=== PATIENT | male | born 1980 | race Caucasian/White ===

== ENCOUNTER 2016-05-30 10:58 | Emergency (ER) | payer OTHER ==
[2016-05-30 11:57] VITALS: BP 113/60
--- NOTE | 2016-05-30 12:50 | UC ---
Skin Complaint HPI - HPI Summary HPI Summary: Pt presents with c/o left side tenderness and erythema below left ear lobe. Pt has history of cellulitis - History of Current Complaint Chief Complaint: UCSkin Time Seen by Provider: 05/30/16 12:42 Stated Complaint: SKIN COMPLAINT Hx Obtained From: Patient Onset/Duration: Sudden Onset, Lasting Days Skin Exposure Onset/Duration: Days Ago Timing: Constant Onset Severity: Mild Current Severity: Mild Location: Discrete - right side of neck, below ear lobe Character: Painful - tenderness Aggravating: Touch Alleviating: Other - not touching Associated Signs & Symptoms: Positive: Tenderness - Allergy/Home Medications Allergies/Adverse Reactions: Allergies Allergy/AdvReac Type Severity Reaction Status Date / Time No Known Allergies Allergy Verified 05/30/16 11:49 Review of Systems Constitutional: Negative Skin: Other - erythema, tenderness Eyes: Negative ENT: Negative Respiratory: Negative Cardiovascular: Negative Gastrointestinal: Negative Genitourinary: Negative Motor: Negative Neurovascular: Negative Musculoskeletal: Negative Neurological: Negative Psychological: Negative All Other Systems Reviewed And Are Negative: Yes PMH/Surg Hx/FS Hx/Imm Hx Previously Healthy: Yes - Surgical History Surgical History: Yes Surgery Procedure, Year, and Place: Cyst removal- Posterior neck - Family History Known Family History: Positive: Other - positive FMH for abrasion - Social History Alcohol Use: None Substance Use Type: Marijuana Substance Use Comment - Amount & Last Used: Daily Smoking Status (MU): Heavy Every Day Tobacco Smoker Amount Used/How Often: 1ppd Household Exposure Type: Cigarettes Physical Exam Triage Information Reviewed: Yes Appearance: Well-Appearing Vital Signs: Initial Vital Signs Temp 98.1 F 05/30/16 11:52 Pulse 49 05/30/16 11:52 Resp 14 05/30/16 11:52 BP 113/60 05/30/16 11:52 Pulse Ox 100 05/30/16 11:52 Eye Exam: Normal ENT Exam: Other - erythema, perrin stubble Neck exam: Normal Respiratory Exam: Normal Cardiovascular Exam: Normal Musculoskeletal Exam: Normal Neurological Exam: Normal Psychological Exam: Normal Skin Exam: Other - eryhtmeatous area ~ dime size just below right earlobe., with perrin stubble sticking upo through Course/Dx - Differential Diagnoses - Skin Complaint Differential Diagnoses: Cellulitis, MRSA, Tinea - Diagnoses Provider Diagnoses: Cellulitis Discharge - Discharge Plan Condition: Stable Disposition: HOME Prescriptions: Cephalexin CAP* [Keflex 500 CAP*] 500 mg PO Q12HR #10 cap Patient Education Materials: Cellulitis (ED) Referrals: No Primary Care Phys,NOPCP [Primary Care Provider] - [facility] [place] [facility] REFERRAL [Outside] Additional Instructions: Please establish care with a PCP. We have provided you a referral number to our [facility] [place] PCP referral service.
== END 2016-05-30 13:10 | disposition home or self-care (01) ==
LOC: EDSEX → UCCORT 10:58
DX: H60.12 Cellulitis of left external ear (principal); F17.210 Nicotine dependence, cigarettes, uncomplicated
CPT/HCPCS: 99202; G0463

== ENCOUNTER 2016-12-28 10:36 | Emergency (ER) | payer OTHER ==
[2016-12-28 11:00] VITALS: BP 120/69
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
== END 2016-12-28 11:50 | disposition home or self-care (01) ==
LOC: UCCORT 10:36
DX: R10.32 Left lower quadrant pain (principal); F17.210 Nicotine dependence, cigarettes, uncomplicated
CPT/HCPCS: 81003; 99211; G0463

== ENCOUNTER 2017-01-30 21:12 | Emergency (ER) | payer OTHER ==
[2017-01-30] MEDS ORDERED: Acetaminop/Codeine 30 MG TAB* 1 TAB (300 MG/30 MG) PO ONE (21:16)
[2017-01-30] MEDS ORDERED: methylPREDNISolone 125 MG* 2 ML VIAL IM ONE (21:16)
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
[2017-01-30] MEDS ORDERED: Silver Sulfadiazine 1%* 20 GM TOPICAL ONE (21:17)
[2017-01-30 21:20] VITALS: BP 118/86
[2017-01-30] MEDS ORDERED: Tetan/Diph/Pertus SYR(Tdap)* 0.5 ML SYR(BOOSTRIX) use SYR IM ONE (21:57)
[2017-01-30] MEDS ORDERED: Ibuprofen TAB* 400 MG PO ONE (22:00)
[2017-01-30] MEDS ORDERED: Lidocaine 2% JELLY* 30 GM TUBE TOPICAL ONE ×2 (22:02→22:07)
[2017-01-30] MEDS ORDERED: Lidocaine 2% JELLY* 6 ML JELLY TOPICAL ONE ×2 (22:03→22:08)
== END 2017-01-30 22:27 | disposition home or self-care (01) ==
LOC: UCCORT 21:12
DX: T23.202A Burn of second degree of left hand, unspecified site, initial encounter (principal); X15.3XXA Contact with hot saucepan or skillet, initial encounter; Y93.9 Activity, unspecified; Y92.9 Unspecified place or not applicable; Z23 Encounter for immunization; F17.210 Nicotine dependence, cigarettes, uncomplicated
CPT/HCPCS: 90471; 90715; 96372; 99213; A9270-GY; G0463; J2930

== ENCOUNTER 2018-12-24 12:19 | Emergency (ER) | payer OTHER ==
[2018-12-24 12:54] VITALS: BP 123/79
--- NOTE | 2018-12-24 13:20 | UC ---
Throat Pain/Nasal Josh HPI - HPI Summary HPI Summary: 38-year-old male comes in with chief complaint of upper respiratory tract infection symptoms for about 3 days. He did have some nausea then he went to sore throat. Pain is worse with swallowing. Pain is decreased with throat lozenges. Has had some chills no measured fevers. Has had some rhinorrhea. No complaint of any shortness of breath or difficulty breathing. - History of Current Complaint Chief Complaint: UCRespiratory Stated Complaint: SORE THROAT Time Seen by Provider: 12/24/18 12:52 Pain Intensity: 8 - Allergies/Home Medications Allergies/Adverse Reactions: Allergies Allergy/AdvReac Type Severity Reaction Status Date / Time No Known Allergies Allergy Verified 12/24/18 12:49 Home Medications: Home Medications Pheniramine/P-Eph/Acetaminophn [Theraflu Flu & Sore Throa] 1 corina PO ONCE PRN [History Confirmed 12/24/18] PMH/Surg Hx/FS Hx/Imm Hx Previously Healthy: Yes - Surgical History Surgical History: Yes Surgery Procedure, Year, and Place: Cyst removal- Posterior neck - Family History Known Family History: Positive: None, Other - Social History Alcohol Use: None Substance Use Type: None Substance Use Comment - Amount & Last Used: Daily Smoking Status (MU): Former Smoker Type: Cigarettes Amount Used/How Often: 1ppd When Did the Patient Quit Smoking/Using Tobacco: 12/16/17 Household Exposure Type: Cigarettes Review of Systems All Other Systems Reviewed And Are Negative: Yes Constitutional: Positive: Chills Skin: Positive: Negative Eyes: Positive: Negative ENT: Positive: Sore Throat, Nasal Discharge Respiratory: Positive: Negative Cardiovascular: Positive: Negative Gastrointestinal: Positive: Negative Motor: Positive: Negative Neurovascular: Positive: Negative Musculoskeletal: Positive: Negative Neurological: Positive: Negative Psychological: Positive: Negative Is Patient Immunocompromised?: No Physical Exam Triage Information Reviewed: Yes Appearance: No Pain Distress, Well-Nourished, Ill-Appearing - mild Vital Signs: Initial Vital Signs Temp 98.6 F 12/24/18 12:50 Pulse 71 12/24/18 12:50 Resp 16 12/24/18 12:50 BP 123/79 12/24/18 12:50 Pulse Ox 98 12/24/18 12:50 Vital Signs Reviewed: Yes Eye Exam: Normal Eyes: Positive: Conjunctiva Clear ENT: Positive: Pharyngeal erythema, Nasal congestion, Nasal drainage, TMs normal , Uvula midline. Negative: Muffled voice, Hoarse voice Neck: Positive: Supple Respiratory: Positive: Lungs clear, Normal breath sounds, No respiratory distress Cardiovascular: Positive: RRR Musculoskeletal: Positive: Strength Intact, ROM Intact Neurological: Positive: Alert, Muscle Tone Normal Psychological: Positive: Normal Response To Family, Age Appropriate Behavior Skin Exam: Normal Throat Pain/Nasal Course/Dx - Course Course Of Treatment: DISCUSSED VIRAL VERSES BACTERIAL INFECTIONS AND THE ROLE OF ANTIBIOTICS. THE PATIENT PREFERS TO BE ON ANTIBIOTICS AT THIS TIME. - Differential Dx/Diagnosis Provider Diagnosis: Upper respiratory infection, Pharyngitis Discharge ED - Sign-Out/Discharge Documenting (check all that apply): Patient Departure All imaging exams completed and their final reports reviewed: No Studies - Discharge Plan Condition: Stable Disposition: HOME Prescriptions: Amoxicillin PO (*) [Amoxicillin 875 MG (*)] 875 mg PO BID #20 tab Ibuprofen TAB* [Motrin TAB* 600 MG] 600 mg PO Q6H PRN #20 tab PRN Reason: Pain-Moderate/Temp >/= 100.4 Patient Education Materials: Pharyngitis (ED), Upper Respiratory Infection (ED) Referrals: Noah Shipley MD [Primary Care Provider] - Additional Instructions: FOLLOW UP WITH YOUR DOCTOR IF NOT COMPLETELY IMPROVED. GET REEVALUATED SOONER IF NOT IMPROVING OR YOUR CONDITION WORSENS OR ANY QUESTIONS OR CONCERNS. - Billing Disposition and Condition Condition: STABLE Disposition: Home
== END 2018-12-24 13:37 | disposition home or self-care (01) ==
LOC: UCCORT 12:19
DX: J02.9 Acute pharyngitis, unspecified (principal); R11.0 Nausea; Z87.891 Personal history of nicotine dependence
CPT/HCPCS: 87651; 99212; G0463

== ENCOUNTER 2019-03-29 10:01 | Emergency (ER) | payer OTHER ==
[2019-03-29 11:08] VITALS: BP 115/76
[2019-03-29 11:39] LABS: Influenza A Molecular NEGATIVE (Negative); Influenza B Molecular NEGATIVE (Negative)
--- NOTE | 2019-03-29 11:41 | UC ---
FLU HPI - HPI Summary HPI Summary: Pt presents with sudden onset of fever, chills, cough, upper respiratory congestion X 3 days. - History of Current Complaint Chief Complaint: UCGeneralIllness Stated Complaint: CONGESTION COUGH Time Seen by Provider: 03/29/19 10:53 Hx Obtained From: Patient Onset/Duration: Sudden Onset, Lasting Days, Still Present Severity Currently: Moderate Severity Initially: Moderate Pain Intensity: 0 Associated Signs & Symptoms: Positive: Fever, Myalgia, Sore Throat, Nasal Congestion Related Hx: Possible Flu/Infectious Exposure - Risk Factors Influenza Risk Factors: Negative - Allergy/Home Medications Allergies/Adverse Reactions: Allergies Allergy/AdvReac Type Severity Reaction Status Date / Time No Known Allergies Allergy Verified 03/29/19 11:08 PMH/Surg Hx/FS Hx/Imm Hx Previously Healthy: Yes - Surgical History Surgical History: Yes Surgery Procedure, Year, and Place: Cyst removal- Posterior neck - Family History Known Family History: Positive: None, Other - Social History Occupation: Employed Full-time Lives: With Family Alcohol Use: None Substance Use Type: None Substance Use Comment - Amount & Last Used: Daily Smoking Status (MU): Former Smoker Type: Cigarettes Amount Used/How Often: 1ppd Have You Smoked in the Last Year: Yes When Did the Patient Quit Smoking/Using Tobacco: 12/16/17 Household Exposure Type: Cigarettes - Immunization History Vaccination Up to Date: No Review of Systems All Other Systems Reviewed And Are Negative: Yes Constitutional: Positive: Fever, Chills, Fatigue Skin: Positive: Negative Eyes: Positive: Negative ENT: Positive: Sinus Congestion Respiratory: Positive: Cough Cardiovascular: Positive: Negative Gastrointestinal: Positive: Negative Genitourinary: Positive: Negative Motor: Positive: Negative Neurovascular: Positive: Negative Musculoskeletal: Positive: Negative Neurological: Positive: Negative Psychological: Positive: Negative Is Patient Immunocompromised?: No Physical Exam Triage Information Reviewed: Yes Appearance: Ill-Appearing Vital Signs: Initial Vital Signs Temp 99.5 F 03/29/19 11:03 Pulse 72 03/29/19 11:03 Resp 18 03/29/19 11:03 BP 115/76 03/29/19 11:03 Pulse Ox 99 03/29/19 11:03 Vital Signs Reviewed: Yes Eye Exam: Normal ENT: Positive: Nasal congestion Dental Exam: Normal Neck exam: Normal Respiratory: Positive: Other: - upper respiratory congestion Cardiovascular Exam: Normal Musculoskeletal Exam: Normal Neurological Exam: Normal Psychological Exam: Normal Psychological: Positive: Normal Response To Family, Age Appropriate Behavior Skin Exam: Normal Flu Course/Dx - Differential Dx/Diagnosis Differential Diagnosis/HQI/PQRI: Bronchitis, Influenza, Upper Respiratory Infection Provider Diagnosis: Bronchitis Discharge ED - Sign-Out/Discharge Documenting (check all that apply): Patient Departure All imaging exams completed and their final reports reviewed: No Studies - Discharge Plan Condition: Stable Disposition: HOME Prescriptions: Amoxicillin PO (*) [Amoxicillin 500 MG CAP*] 500 mg PO Q12H #20 cap Benzonatate CAP* [Tessalon 100 MG CAP*] 100 mg PO Q8H PRN #30 cap PRN Reason: Cough predniSONE 10 mg TAB [Deltasone 10 MG TAB*] 30 mg PO DAILY #12 tab Patient Education Materials: Acute Bronchitis (ED) Forms: *Work Release Referrals: Noah Shipley MD [Primary Care Provider] - If Needed - Billing Disposition and Condition Condition: STABLE Disposition: Home
== END 2019-03-29 12:00 | disposition home or self-care (01) ==
LOC: UCCORT 10:01
DX: J40 Bronchitis, not specified as acute or chronic (principal); Z87.891 Personal history of nicotine dependence
CPT/HCPCS: 99212; G0463